=== PATIENT | male | born 1970 | race Two or more races ===

== ENCOUNTER 2022-09-27 00:28 | Inpatient (IN) | payer MEDICAID, OTHER ==
[~2022-09-27] VITALS: Ht 170.2 cm; Wt 87.7 kg
[~2022-09-27 00:28] MED LIST: AMLO-258 PO; GEMF600T89 PO; HYDR25TA84 PO; INSLAN SQ; METO25 PO
[2022-09-27 01:21] LABS: COVID AG,FIA SOURCE NASOPHARYNGEAL
[2022-09-27] MEDS ORDERED: DiphenhydrAMINE HCL 50 MG/ML VIAL IM ONE (01:30)
[2022-09-27] MEDS ORDERED: HALOPERIDOL LACTATE 5 MG/ML VIAL IM ONE (01:30)
[2022-09-27] MEDS ORDERED: LORazepam 2 MG/ML VIAL IM ONE (01:30)
[2022-09-27 03:54] LABS: HEMOGLOBIN 14.5 g/dL (13.5-17.5)
[2022-09-27 03:57] LABS: BASOPHILS % (AUTO) 0.5 % (0.0-2.0); EOSINOPHILS % (AUTO) 4.2 % (1.0-6.0); HEMATOCRIT 43.6 % (41-53); LYMPHOCYTES % (AUTO) 19.6 % (22.0-44.0); MEAN CORPUSCULAR HEMOGLOBIN 29.8 pg (26.0-34.0); MEAN CORPUSCULAR HGB CONC 33.3 G/dL (31.0-37.0); MEAN CORPUSCULAR VOLUME 89 fL (80-100); MONOCYTES % (AUTO) 9.6 % (2.0-9.0); NEUTROPHILS # (AUTO) 6.7 K/uL (1.8-7.7); NEUTROPHILS % (AUTO) 66.1 % (40.0-70.0); PLATELET COUNT (AUTO) 250 K/uL (150-450); RED BLOOD CELL COUNT(AUTO) 4.88 MIL/uL (4.50-5.90); RED CELL DISTRIBUTION WIDTH 14.3 % (11.5-14.5)
[2022-09-27 04:12] LABS: ANION GAP 9 mmol/L (8-16); CALCIUM, TOTAL 8.8 mg/dL (8.8-10.5); CARBON DIOXIDE 28 mmol/L (22-29); CHLORIDE 107 mmol/L (98-107); CREATININE 1.14 mg/dL (0.60-1.30); GLUCOSE,RANDOM 124 mg/dL (70-110); POTASSIUM 3.3 mmol/L (3.5-5.1); SODIUM SERUM 144 mmol/L (136-145); UREA NITROGEN, BLOOD 22 mg/dL (7-18)
[2022-09-27 04:13] LABS: GLOMERULAR FILTR. RATE CALC > 60 mL/min (>60)
[2022-09-27] MEDS ORDERED: POTASSIUM CHLORIDE 10% 40 MEQ/30 ML LIQUID UDCUP PO ONE (04:15)
[2022-09-27 04:37] LABS: ALANINE AMINOTRANSFERASE 31 U/L (12-78); ALBUMIN 3.5 g/dL (3.4-5.0); ALKALINE PHOSPHATASE 109 U/L (46-116); ASPARTATE AMINOTRANSFERASE 14 U/L (15-37); BILIRUBIN,TOTAL 0.2 mg/dL (0.1-1.0); CREATINE KINASE, TOTAL ONLY 252 U/L (39-308); LIPASE 97 U/L (73-393); TOTAL PROTEIN, SERUM 7.1 g/dL (6.4-8.2)
[2022-09-27] MEDS ORDERED: MAG HYDROX/AL HYDROX/SIMETH ES 30 ML SUSPENSION UDCUP PO PRN (05:15)
[2022-09-27] MEDS ORDERED: ONDANSETRON HCL 4 MG TABLET PO PRN (05:15)
[2022-09-27] MEDS ORDERED: IBUPROFEN 600 MG TABLET PO PRN (05:15)
[2022-09-27] MEDS ORDERED: LOPERAMIDE HCL 2 MG CAPSULE PO PRN (05:15)
[2022-09-27] MEDS ORDERED: ACETAMINOPHEN 325 MG TABLET PO PRN (05:15)
[2022-09-27] MEDS ORDERED: OMEPRAZOLE 20 MG CAPSULE PO PRN (05:15)
[2022-09-27] MEDS ORDERED: BACITRACIN 28 GM OINTMENT TP PRN (05:15)
[2022-09-27] MEDS ORDERED: BENZOCAINE/MENTHOL LOZENGE PO PRN (05:15)
[2022-09-27] MEDS ORDERED: ALBUTEROL SULFATE HFA 90 MCG/PUFF 8 GM INHALER IH PRN (05:15)
[2022-09-27] MEDS ORDERED: PETROLATUM,WHITE 28 GM JELLY TP PRN (05:15)
[2022-09-27] MEDS ORDERED: CloNIDine HCL 0.1 MG TABLET PO PRN (05:15)
[2022-09-27] MEDS ORDERED: MAGNESIUM HYDROXIDE SUSPENSION 30 ML UDCUP PO PRN (05:15)
[2022-09-27] MEDS ORDERED: POTASSIUM CHLORIDE 20 MEQ ER TABLET PO ONE (05:15)
[2022-09-27] MEDS ORDERED: DEXTROSE 50%-WATER 25 GM/50 ML SYRINGE IVP PRN (05:15)
[2022-09-27] MEDS ORDERED: DOCUSATE SODIUM 100 MG CAPSULE PO PRN (05:15)
[2022-09-27 05:27] VITALS: BP 148/85
[2022-09-27 06:46] LABS: GLUCOMETER DEV NAME(LOC) 3E.C; GLUCOSE,POINT OF CARE 82 MG/DL (70-110)
[2022-09-27] MEDS: GEMFIBROZIL 600 MG TABLET PO SCH ×2 (07:00→17:46)
[2022-09-27] MEDS: METOPROLOL TARTRATE 25 MG TABLET PO SCH ×2 (09:00→17:46)
[2022-09-27] MEDS: AmLODIPine BESYLATE 10 MG TABLET PO SCH (09:00)
[2022-09-27] MEDS: HydrALAZINE HCL 25 MG TABLET PO SCH ×4 (09:00→20:55)
[2022-09-27] MEDS: INSULIN GLARGINE,HUM.REC.ANLOG 100 UNITS/ML SQ SCH ×2 (09:00→17:00)
[2022-09-27 09:01] VITALS: BP 133/96
[2022-09-27 11:46] LABS: GLUCOMETER DEV NAME(LOC) 3E.C; GLUCOSE,POINT OF CARE 80 MG/DL (70-110)
[2022-09-27 12:01] VITALS: BP 148/84
[2022-09-27 17:01] LABS: GLUCOMETER DEV NAME(LOC) 3E.C; GLUCOSE,POINT OF CARE 62 MG/DL (70-110)
[2022-09-27 17:46] VITALS: BP 145/97
[2022-09-27 17:51] LABS: GLUCOMETER DEV NAME(LOC) 3E.C; GLUCOSE,POINT OF CARE 96 MG/DL (70-110)
[2022-09-27] MEDS: ZOLPIDEM TARTRATE 10 MG TABLET PO PRN (20:55)
[2022-09-27] MEDS: INSULIN LISPRO 100 UNITS/ML SQ PRN (21:45)
[2022-09-27 21:55] LABS: GLUCOMETER DEV NAME(LOC) 3E.C; GLUCOSE,POINT OF CARE 127 MG/DL (70-110)
[2022-09-28] MEDS: GEMFIBROZIL 600 MG TABLET PO SCH ×2 (06:28→16:30)
[2022-09-28 06:40] LABS: GLUCOMETER DEV NAME(LOC) 3E.C; GLUCOSE,POINT OF CARE 97 MG/DL (70-110)
[2022-09-28] MEDS: HydrALAZINE HCL 25 MG TABLET PO SCH ×4 (08:16→20:22)
[2022-09-28] MEDS: METOPROLOL TARTRATE 25 MG TABLET PO SCH ×2 (08:16→16:30)
[2022-09-28] MEDS: AmLODIPine BESYLATE 10 MG TABLET PO SCH (08:16)
[2022-09-28] MEDS: INSULIN GLARGINE,HUM.REC.ANLOG 100 UNITS/ML SQ SCH ×2 (08:18→17:00)
[2022-09-28 08:41] LABS: ANION GAP 6 mmol/L (8-16); CALCIUM, TOTAL 8.5 mg/dL (8.8-10.5); CARBON DIOXIDE 30 mmol/L (22-29); CHLORIDE 105 mmol/L (98-107); CHOL/HDL RATIO 4.3 (4.2-7.3); CHOLESTEROL 183 mg/dL (131-200); CREATININE 1.14 mg/dL (0.60-1.30); GLUCOSE,RANDOM 121 mg/dL (70-110); HDL CHOLESTEROL 43 mg/dL (40-60); LDL CHOL (CALC.) 125 mg/dL (0-130); SODIUM SERUM 141 mmol/L (136-145); THYROID STIMULATING HORMONE 1.51 uIU/mL (0.36-3.74); TRIGLYCERIDES 76 mg/dL (15-150); UREA NITROGEN, BLOOD 19 mg/dL (7-18)
[2022-09-28 08:43] LABS: GLOMERULAR FILTR. RATE CALC > 60 mL/min (>60)
[2022-09-28 08:46] LABS: HEMOGLOBIN A1C 6.9 % (3.8-5.6)
[2022-09-28 09:49] VITALS: BP 115/77
[2022-09-28 11:51] LABS: GLUCOMETER DEV NAME(LOC) 3E.C; GLUCOSE,POINT OF CARE 149 MG/DL (70-110)
[2022-09-28] MEDS: INSULIN LISPRO 100 UNITS/ML SQ PRN ×2 (11:56→20:58)
[2022-09-28 16:16] VITALS: BP 116/81
[2022-09-28 16:52] VITALS: BP 116/81
[2022-09-28 16:56] LABS: GLUCOMETER DEV NAME(LOC) 3E.C; GLUCOSE,POINT OF CARE 111 MG/DL (70-110)
[2022-09-28 21:11] LABS: GLUCOMETER DEV NAME(LOC) 3E.C; GLUCOSE,POINT OF CARE 187 MG/DL (70-110)
[2022-09-29] MEDS: GEMFIBROZIL 600 MG TABLET PO SCH ×2 (06:43→16:48)
[2022-09-29 07:06] LABS: GLUCOMETER DEV NAME(LOC) 3E.C; GLUCOSE,POINT OF CARE 79 MG/DL (70-110)
[2022-09-29 08:10] VITALS: BP 147/99
[2022-09-29] MEDS: CITALOPRAM HYDROBROMIDE 20 MG TABLET PO SCH (08:37)
[2022-09-29] MEDS: AmLODIPine BESYLATE 10 MG TABLET PO SCH (08:37)
[2022-09-29] MEDS: HydrALAZINE HCL 25 MG TABLET PO SCH ×4 (08:37→21:17)
[2022-09-29] MEDS: METOPROLOL TARTRATE 25 MG TABLET PO SCH ×2 (08:37→16:48)
[2022-09-29] MEDS: INSULIN GLARGINE,HUM.REC.ANLOG 100 UNITS/ML SQ SCH ×2 (09:00→21:19)
[2022-09-29 10:56] VITALS: BP 147/99
[2022-09-29 11:46] LABS: GLUCOMETER DEV NAME(LOC) 3E.C; GLUCOSE,POINT OF CARE 124 MG/DL (70-110)
[2022-09-29 14:19] LABS: APPEARANCE,URINE CLEAR (CLEAR); BILIRUBIN,URINE NEGATIVE (NEGATIVE); GLUCOSE, URINE (UA) NEGATIVE (NEGATIVE); KETONES,URINE NEGATIVE (NEGATIVE); LEUKOCYTE ESTERASE ,URINE NEGATIVE (NEGATIVE); NITRATE,URINE NEGATIVE (NEGATIVE); OCCULT BLOOD,URINE NEGATIVE (NEGATIVE); PH,URINE 6.5 (5.0-8.0); PROTEIN,URINE NEGATIVE (NEGATIVE); SPECIFIC GRAVITIY, URINE 1.014 (1.003-1.030); UROBILINOGEN,URINE <=1.0 mg/dL (<=1.0)
[2022-09-29 14:26] LABS: AMPHET/METH SCREEN,URINE NEGATIVE (NEGATIVE); BARBITURATE SCREEN, URINE NEGATIVE (NEGATIVE); BENZODIAZEPINES SCREEN,URINE NEGATIVE (NEGATIVE); CANNABINOID SCREEN,URINE NEGATIVE (NEGATIVE); COCAINE SCREEN,URINE NEGATIVE (NEGATIVE); METHADONE SCREEN, URINE NEGATIVE (NEGATIVE); OPIATE SCREEN,URINE NEGATIVE (NEGATIVE); PHENCYCLIDINE SCREEN,URINE NEGATIVE (NEGATIVE)
[2022-09-29 16:31] LABS: GLUCOMETER DEV NAME(LOC) 3E.C; GLUCOSE,POINT OF CARE 126 MG/DL (70-110)
[2022-09-29 16:45] VITALS: BP 150/90
[2022-09-29 20:16] LABS: GLUCOMETER DEV NAME(LOC) 3E.C; GLUCOSE,POINT OF CARE 156 MG/DL (70-110)
[2022-09-29] MEDS: INSULIN LISPRO 100 UNITS/ML SQ PRN (21:10)
[2022-09-29] MEDS: ZOLPIDEM TARTRATE 10 MG TABLET PO PRN (21:17)
[2022-09-29] MEDS: OLANZapine 5 MG TABLET PO SCH (21:17)
[2022-09-30 06:26] LABS: GLUCOMETER DEV NAME(LOC) 3E.C; GLUCOSE,POINT OF CARE 94 MG/DL (70-110)
[2022-09-30] MEDS: GEMFIBROZIL 600 MG TABLET PO SCH ×2 (06:41→15:43)
[2022-09-30 08:22] VITALS: BP 137/93
[2022-09-30] MEDS: METOPROLOL TARTRATE 25 MG TABLET PO SCH ×2 (09:26→15:42)
[2022-09-30] MEDS: HydrALAZINE HCL 25 MG TABLET PO SCH ×4 (09:27→21:06)
[2022-09-30] MEDS: CITALOPRAM HYDROBROMIDE 20 MG TABLET PO SCH (09:28)
[2022-09-30] MEDS: AmLODIPine BESYLATE 10 MG TABLET PO SCH (09:29)
[2022-09-30 11:51] LABS: GLUCOMETER DEV NAME(LOC) 3E.C; GLUCOSE,POINT OF CARE 91 MG/DL (70-110)
[2022-09-30] MEDS: HALOPERIDOL 5 MG TABLET PO PRN (15:42)
[2022-09-30] MEDS: LORazepam 2 MG TABLET PO PRN (15:42)
[2022-09-30 16:29] VITALS: BP 150/90
[2022-09-30 17:07] LABS: GLUCOMETER DEV NAME(LOC) 3E.C; GLUCOSE,POINT OF CARE 92 MG/DL (70-110)
[2022-09-30] MEDS: OLANZapine 5 MG TABLET PO SCH (21:06)
[2022-09-30] MEDS: INSULIN GLARGINE,HUM.REC.ANLOG 100 UNITS/ML SQ SCH (21:14)
[2022-09-30] MEDS: INSULIN LISPRO 100 UNITS/ML SQ PRN (21:15)
[2022-09-30 21:31] LABS: GLUCOMETER DEV NAME(LOC) 3E.C; GLUCOSE,POINT OF CARE 267 MG/DL (70-110)
[2022-10-01] MEDS: GEMFIBROZIL 600 MG TABLET PO SCH ×2 (06:21→16:07)
[2022-10-01 06:40] LABS: GLUCOMETER DEV NAME(LOC) 3E.C; GLUCOSE,POINT OF CARE 81 MG/DL (70-110)
[2022-10-01] MEDS: INSULIN LISPRO 100 UNITS/ML SQ PRN ×3 (06:46→13:27)
[2022-10-01 08:25] VITALS: BP 115/81
[2022-10-01] MEDS: AmLODIPine BESYLATE 10 MG TABLET PO SCH (10:00)
[2022-10-01] MEDS: LORazepam 2 MG TABLET PO PRN (10:00)
[2022-10-01] MEDS: HALOPERIDOL 5 MG TABLET PO PRN (10:00)
[2022-10-01] MEDS: CITALOPRAM HYDROBROMIDE 20 MG TABLET PO SCH (10:00)
[2022-10-01] MEDS: HydrALAZINE HCL 25 MG TABLET PO SCH ×3 (10:01→16:07)
[2022-10-01] MEDS: METOPROLOL TARTRATE 25 MG TABLET PO SCH ×2 (10:01→16:07)
[2022-10-01 13:11] LABS: GLUCOMETER DEV NAME(LOC) 3E.C; GLUCOSE,POINT OF CARE 176 MG/DL (70-110)
[2022-10-01] MEDS ORDERED: INSLAN SQ (14:43)
[2022-10-01 16:10] VITALS: BP 104/75
== END 2022-10-01 18:27 | disposition home or self-care (01) | DRG 751 ==
LOC: EMS 00:30 → 3EC 04:21
PROVIDERS: ADMIT Psychiatry & Neurology Psychiatry; ATTEND Psychiatry & Neurology Psychiatry
DX: F32.2 Major depressive disorder, single episode, severe without psychotic features (principal); R45.851 Suicidal ideations; E87.6 Hypokalemia; E11.65 Type 2 diabetes mellitus with hyperglycemia; E78.5 Hyperlipidemia, unspecified; F41.9 Anxiety disorder, unspecified; G47.00 Insomnia, unspecified; I10 Essential (primary) hypertension; J44.9 Chronic obstructive pulmonary disease, unspecified; K21.9 Gastro-esophageal reflux disease without esophagitis; F17.210 Nicotine dependence, cigarettes, uncomplicated; Z79.899 Other long term (current) drug therapy
CPT/HCPCS: 80048; 80053; 80061; 80307; 81003; 82550; 82962; 83036; 83690; 84443; 84484; 85025; 93005; 99291; G0480; J1200; J1630; J1815; J2060